=== PATIENT | female | born 1940 | race Caucasian/White ===

== ENCOUNTER → 2017-10-03 | Outpatient (CLI) | payer MEDICARE ==
[2016-10-08 11:13] VITALS: BMI 25.7
[~2017-10-03] MED LIST: ACET-3017 PO; ASPI-1471 PO; ASPI81TA94 PO; CEPH250S35 PO; CEPH500T7 PO; CIPR-214 PO; CLOP75TA43 PO; FAMO20TA28 PO; FLU180SY9 IM; FLU45SYR17 IM; FLUC40SU11 PO; HYDR-385 PO; HYDR473S9 PO; HYDR474S3 PO; LEVO88TA45 PO; LEVOTHYROXIN PO; META-1 PO; NYST15PO4 TP; ONDA-153 SL; PHEN200T32 PO; POT20 PO; PRED20TA6 PO; SULF-198 PO; TRAM-420 PO
== END ==
LOC: LAB 16:41
DX: R31.9 Hematuria, unspecified (principal)
CPT/HCPCS: 99001

== ENCOUNTER 2017-10-27 00:50 | Day surgery (SDC) | payer MEDICARE ==
[2016-10-08 11:13] VITALS: Ht 162.6 cm; Wt 73.5 kg
[~2017-10-27] VITALS: Ht 162.6 cm; Wt 73.5 kg
[2017-10-27 06:24] VITALS: BP 126/55
[2017-10-27 06:29] LABS: PLATELET COUNT, AUTOMATED 286 K/uL (150-450)
[2017-10-27] MEDS ORDERED: FAMOTIDINE(*) 20MG/50ML PREMIX 50 ML IVPB ONE (06:30)
[2017-10-27] MEDS ORDERED: LEVOFLOXACIN/D5W*500 MG/100 ML 100 ML IVPB ONE (06:30)
[2017-10-27] MEDS ORDERED: LIDOCAINE/SOD BICARB 8.4% SYR ID ONE (06:30)
[2017-10-27] MEDS ORDERED: MIDAZOLAM 2 MG/2 ML VIAL IVP ONE (06:30)
[2017-10-27] MEDS ORDERED: NORMOSOL R SOLN(*) 1000 ML BAG 1,000 ML IV PRN (06:30)
[2017-10-27] MEDS ORDERED: fentaNYL CITR 100 MCG/2 ML AMP ONE (07:17)
[2017-10-27] MEDS ORDERED: PROPOFOL EMUL(*) 10MG/ML 20 ML 20 ML ONE (07:18)
[2017-10-27] MEDS ORDERED: LIDOCAINE 2% IV 100 MG/5ML SYR ONE (07:19)
[2017-10-27] MEDS ORDERED: DEXAMETHASONE SOD 4 MG/ML VIAL ONE (07:40)
[2017-10-27] MEDS ORDERED: ONDANSETRON 4 MG/2 ML VIAL ONE (07:41)
[2017-10-27] MEDS ORDERED: EPINEPHrine HCL 30 MG/30 ML ONE (07:45)
[2017-10-27] MEDS ORDERED: FAMO20TA28 PO (08:45)
[2017-10-27] MEDS ORDERED: HYDR-4309 PO (08:45)
[2017-10-27] MEDS ORDERED: CIPR-344 PO (08:46)
[2017-10-27] MEDS ORDERED: mitoMYcin 20 MG VIAL 40 MG in WATER STERILE FOR INJ 50 ML VL 40 ML IR ONE (09:00)
[2017-10-27 10:08] VITALS: BP 123/62
[2017-10-27 10:32] VITALS: BP 121/68
[2017-10-27 10:36] VITALS: BP 125/59
--- NOTE | 2017-10-28 07:46 | OPERATIVE REPORT 1 ---
EVENT DATE: October 27, 2017 SURGEON: Gurwinder Hernandez MD ANESTHESIOLOGIST: Scooby Owen MD ANESTHESIA: General. PREOPERATIVE DIAGNOSIS Possible recurrent bladder cancer. POSTOPERATIVE DIAGNOSIS No evidence of recurrent bladder cancer. PROCEDURE PERFORMED 1. Cystourethroscopy. 2. Hydrodistention of the bladder. 3. Urethral dilation. 4. Mitomycin C 40 mg bladder treatment. DESCRIPTION OF PROCEDURE Under general anesthetic, the patient was prepped and draped in the extended lithotomy position. The 21 panendoscope admitted through the urethra into the bladder. The bladder showed 3-4+ trabeculation. Trigone and ureteral orifices were normal, no bloody efflux from either orifice. Inspection of the bladder with the 30 degree and 70 degree lens showed no evidence of recurrent bladder cancer. Bladder was filled under gravity flow to a total of 600 mL. On drainage of the bladder, there was no bloody drainage. On reinspection of the bladder, there were a few glomerulations on the posterior wall, dome of the bladder. Bladder was drained. The urethra was dilated to 32 Syriac. The 18 Syriac Carpenter was left indwelling for a mitomycin C bladder treatment. Patient returned to the recovery room in satisfactory condition. INDICATION FOR PROCEDURE This is a 77-year-old female complaining of possible recurrent bladder cancer. Options were discussed, and she was agreeable to repeat cystourethroscopy. FISH test was negative in September 2017. DISCHARGE INSTRUCTIONS Patient will be ready for discharge home when alert and functional, to force fluids, 12 glasses of water per day. Activities are as tolerated. She is to continue her usual medications. Copy of instructions were given to the patient. She was discharged on Cipro, Pepcid, Motrin and [place] therapy. Plan follow up October 28, 2017. MTDD
--- NOTE | 2017-10-28 08:27 | OPERATIVE REPORT 1 ---
EVENT DATE: October 27, 2017 SURGEON: Gurwinder Hernandez MD ANESTHESIOLOGIST: Scooby Owen MD ANESTHESIA: General. PREOPERATIVE DIAGNOSIS Possible recurrent bladder cancer. POSTOPERATIVE DIAGNOSIS No evidence of recurrent bladder cancer. PROCEDURES 1. Cystourethroscopy. 2. Hydrodistention of the bladder. 3. Urethral dilation. 4. Collection of urine for urinalysis, culture and sensitivity. 5. Mitomycin C 40 mg bladder treatment. DESCRIPTION OF PROCEDURE Under general anesthetic, the patient was prepped and draped in the extended lithotomy position. The 21 panendoscope admitted through the urethra into the bladder. The bladder showed 3-4+ trabeculation. Trigone and ureteral orifices were normal, no bloody efflux from either orifice. No other demonstrable bladder lesions. Bladder was filled under gravity. Flow was measured to a total of 600 mL. She had leakage of fluid around her panendoscope. On drainage of the bladder, there was no bloody drainage. On reinspection of the bladder, she had a few glomerulations in the upper posterior wall, dome of the bladder. As previously eluded, no definite discrete lesions could be identified. Bladder was drained. The urethra was dilated to 32 Azerbaijani. The #20 Azerbaijani Carpenter was placed. The catheter was plugged. Patient was transferred to the recovery room. Plan mitomycin C 40 mg bladder treatment. DISCHARGE INSTRUCTIONS The patient will be ready for discharge home when alert and functional. Patient is to force fluids, 2 liters per day. Activities are as tolerated. She is to continue her usual medications. Copy of instructions were given to the patient. Plan follow up in the office, I believe on November 25, 2017. MTDLima
== END 2017-10-27 10:08 | disposition home or self-care (01) ==
LOC: OR 00:50
DX: Z85.51 Personal history of malignant neoplasm of bladder (principal)
CPT/HCPCS: 36415; 51720; 52281; 81001; 85025; 87088; A4338; J0171; J1100; J1956; J2001; J2405; J2704; J3010; J3490; J9280

== ENCOUNTER → 2018-03-30 | Outpatient (CLI) | payer MEDICARE ==
[2016-10-08 11:13] VITALS: BMI 25.7
[~2018-03-30] MED LIST changes: +CIPR-344 PO; +HYDR-4309 PO
== END ==
LOC: LAB 10:40
DX: C67.1 Malignant neoplasm of dome of bladder (principal); R31.1 Benign essential microscopic hematuria
CPT/HCPCS: 99001

== ENCOUNTER → 2018-07-06 | Outpatient (CLI) | payer MEDICARE ==
[2016-10-08 11:13] VITALS: BMI 25.7
[~2018-07-06] MED LIST changes: -HYDR-4309 PO; +HYDR-653 PO; +PNEU0.5D3 IM
[2018-07-06 14:20] LABS: PLATELET COUNT, AUTOMATED 295 K/uL (150-450)
== END ==
LOC: LAB 13:39
PROVIDERS: ATTEND Family Medicine
DX: R73.9 Hyperglycemia, unspecified (principal); R73.03 Prediabetes; E03.9 Hypothyroidism, unspecified
CPT/HCPCS: 36415; 82040; 82247; 82310; 82374; 82435; 82565; 82947; 83036; 84075; 84132; 84155; 84295; 84443; 84450; 84460; 84520; 85025

== ENCOUNTER → 2019-01-04 | Outpatient (CLI) | payer MEDICARE ==
[2016-10-08 11:13] VITALS: BMI 25.7
[~2019-01-04] MED LIST changes: +FLU180SY11 IM
[2019-01-04 15:23] LABS: PLATELET COUNT, AUTOMATED 265 K/uL (150-450)
== END ==
LOC: LAB 15:00
PROVIDERS: ATTEND Family Medicine
DX: E03.9 Hypothyroidism, unspecified (principal); E11.9 Type 2 diabetes mellitus without complications
CPT/HCPCS: 36415; 82040; 82247; 82310; 82374; 82435; 82565; 82947; 83036; 84075; 84132; 84155; 84295; 84443; 84450; 84460; 84520; 85025